=== PATIENT | female | born 1945 | race Caucasian/White ===

== ENCOUNTER 2021-10-23 11:26 | Outpatient (CLI) | payer MEDICARE, SELFPAY ==
--- NOTE | 2021-10-23 11:34 | ECG_ITS ---
Measurements Intervals [place] Rate: 73 P: 46 GA: 157 QRS: 24 QRSD: 94 T: 41 QT: 365 QTc: 405 Interpretive Statements SINUS RHYTHM POSSIBLE LEFT ATRIAL ENLARGEMENT [-0.1mV P WAVE IN V1/V2] POSSIBLE RIGHT VENTRICULAR CONDUCTION DELAY [RSR (QR) IN V1/V2] NO PREVIOUS ECG AVAILABLE FOR COMPARISON Electronically Signed On 10-23-2021 18:37:22 CDT by Luz Cruz M.D.
== END 2021-10-23 11:27 | disposition home or self-care (01) ==
LOC: ANHSURGERY 11:31
PROVIDERS: PCP Internal Medicine; Visit Provider Orthopaedic Surgery
DX: Z01.818 Encounter for other preprocedural examination (principal); I10 Essential (primary) hypertension
CPT/HCPCS: 93005

== ENCOUNTER 2021-10-25 02:41 | Day surgery (SDC) | payer MEDICARE, SELFPAY ==
[2021-10-18 15:02] VITALS: BMI 28.5
--- NOTE | 2021-10-18 15:27 | PC.NURSE ---
Report to the Outpatient Waiting Room, entrance under the green pavilion located off [facility], at time __6:00AM on date __10/25/21 . OR Time: ___7:30AM . - You and your visitor will be asked a series of questions to screen for COVID 19 for your protection. - A mask is required within the hospital. Preoperative COVID Testing Requirements: No COVID Test needed if: (proof is required; if not received patient will have Rapid Test prior to entry) - Patient has received COVID Vaccine at least 14 days prior to procedure date or - Patient has positive COVID test result within last 90 days of surgery date. COVID Test needed if above criteria is not met If not COVID vaccinated a COVID test must be conducted within 72 hours of surgery and patient is asked to isolate self from time of testing until procedure. You will go to the [facility] for your COVID testing. The [facility] site is located at the corner of [address] [facility]. You will only be called if COVID results are positive and your surgeon may reschedule your elective surgery date. Patients may have clear liquids (water, carbonated beverages, clear teas, apple juice) until 3 hours prior to surgery with a maximum of 20 ounces. - No food from midnight until time of surgery - Infants may have breast milk until 4 hours before surgery, formula 6 hours prior to surgery. - Children will be allowed to drink immediately following surgery. If applicable, please bring a bottle or sippy cup to assist with drinking. Juice, water, soda, and popsicles are readily available. For infants on formula, please bring formula the day of surgery. Pacifiers are allowed. Take the following medications with a SIP of water the morning of surgery: ___DILTIAZEM, GABAPENTIN, HYDROCODONE Medications to discontinue per physician ALL VITAMINS/SUPPLEMENTS 3 DAYS PRE-OP Date to take last dose____10/21/21 Please no make-up, nail tunisian, hairspray, perfume, deodorant, or body powder the day of surgery. No jewelry (including any body piercings) or valuables the day of surgery, leave them at home. Please take a shower or bath the night before, or the morning of, surgery with an antibacterial soap. Wear comfortable, loose fitting clothing. Children are encouraged to wear pajamas. - Jewelry must be removed prior to entering the operating room. Rings and piercings that are not removed may be cut off. - The hospital will not accept responsibility for valuables. - Please leave all valuables, including medications, at home the day of surgery. PATIENT CALLING MD OFFICE TO GET OK TO LEAVE FINGERNAIL DIVEHI ON. If you are going home after surgery, a licensed trailer truck driver must drive you home. - NO public transportation without another adult. - We recommend that an adult stay with you for 24 hours following discharge. - We also recommend that you do not drive, make important decision, drink alcoholic beverages, or take any drugs that were not prescribed by your health care provider for at least 24 hours after your discharge time. For Pediatric surgeries, we recommend two adults accompany the child home (only one inside the building at this time). One visitor will be allowed to accompany the patient into the hospital. Patients visitor will be instructed to remain with patient at all times or leave the building. We will allow the visitor to come back to the postoperative area when patient is ready. Follow any additional instructions given to you from your surgeon. Telephone instructions given to ___PATIENT and asked if any additional questions and then verbalized understanding. Patient advised to call surgeon office or pre surgery nurse liaison [phone] if any additional questions.
--- NOTE | 2021-10-24 10:32 | WPDANESEPPF ---
Anes - Initial Pre Proc Eval Procedure: Operation Date: 10/25/21 07:30 Proposed Procedures p Left Shoulder Arthroscopy with Distal Clavicle Excision, Subacromial Decompression, Extensive Joint Debridement with Possible Bicep Tenodesis - Reuben Simmons MD Date/Time: 10/24/21 10:32 Surgeon: Reuben Simmons MD Pre Op Diagnosis: Impinge Syndrome Lt Shoulder , Patient Data Age: 75 Gender: F Height: 1.6 m Weight: 73 kg Allergies Allergy/AdvReac Type Severity Reaction Status Date / Time Penicillins Allergy Severe Rash, SOB, Verified 10/25/21 06:33 SWELLING adhesive tape Allergy Unknown REDNESS, Verified 10/25/21 06:33 IRRITATION, BLISTERS etodolac Allergy RASH, Verified 10/25/21 06:33 SWEELING, SOB ibuprofen Allergy RASH, Verified 10/25/21 06:33 SWELLING, SOB NSAIDS (Non-Steroidal Allergy RASH, Verified 10/25/21 06:33 Anti-Inflamma SWELLING, SOB MUSCLE RELAXANTS Allergy RASH, Uncoded 10/25/21 06:33 SWELLING, SOB Home Medications Medication Instructions Recorded Confirmed Type diltiazem HCl 120 mg 120 mg PO BID 08/22/21 10/25/21 History capsule,extended release 12 hr gabapentin 300 mg capsule 300 mg PO QAM 08/22/21 10/25/21 History pantoprazole 20 mg tablet,delayed 20 mg PO QAM 08/22/21 10/25/21 History release vit C 250 mg-vit E 90 mg-zinc 40 1 tablet PO BID 08/22/21 10/25/21 History mg-copper 1 gr-fazghb-ylobsw capsule b.ylt-zmt-abonx-nrh-qjrs-sijak 1 ea PO BID 10/18/21 10/25/21 History [Black Cohosh Menopause Complex] gabapentin 600 mg PO HS 10/18/21 10/25/21 History hydrocodone-acetaminophen 1 tablet PO QID 10/18/21 10/25/21 History multivitamin [Multiple Vitamin] 1 tablet PO DAILY 10/18/21 10/25/21 History Patient hx anesthesia problems: none Family hx anesthesia problems: none Results Review: All pre-operative results and documents have been reviewed as part of the pre-operative evaluation. REPLACED BY [facility] Past Medical History Medical History (Updated 10/24/21 @ 10:33 by Jesse Harrison DO) Chronic, continuous use of opioids Fibromyalgia History of cervical cancer History of lung cancer History of radiation therapy History of right breast cancer (~2015) History of stress test (~2001) Hypertension Surgical History Surgical History (Updated 10/24/21 @ 10:33 by Jesse Harrison DO) History of discectomy History of hernia surgery (~1999) History of hysterectomy (~1979) History of knee surgery (~1993) Rt History of right knee surgery (~2009) Hx of fusion of cervical spine Family History Family History Other Breast cancer Social History Social History Smoking packs per day: 1 Smoking cigarettes per day: 20.0 Years smoked: 35 Smoking pack-years: 35.00 Smoking status: Former smoker Tobacco type: cigarettes Smoking end date: 02/08/03 Substance use: never Living arrangements: with family [facility] Spiritual care concerns: No Anes - Eval Final PreProcedure Day of Procedure 10/24/21 10:32 Patient weight: overweight Heart: regular rate and rhythm Lungs: clear to auscultation and normal air movement Airway: Mallampati scale class II Neurological: alert and oriented Last oral intake: >/= 8 hours ASA classification: III Emergent: no Anesthetic plan: proceed Anesthesia type and monitoring: general ETT and standard monitoring Results Review: All pre-operative results and documents have been reviewed as part of the pre-operative evaluation. Informed Consent: The patient's anesthetic plan and its attendant risks and benefits were discussed with the patient/family/POA. Questions were solicited and answers provided to the satisfaction of the patient/family/POA.
--- NOTE | 2021-10-24 10:33 | WPDANESPNB ---
Anes - Peripheral Nerve Block Date/Time: 10/24/21 10:33 I have discussed with the patient/family/POA the placement of a peripheral nerve block for post-operative pain management, including associated risks, benefits, complications, and side effects. Alternative methods of post-operative analgesia were detailed. Questions were solicited and answers provided to the satisfaction of the patient/family/POA. Time-Out: A pre-procedural Time-Out was completed immediately before starting the procedure and confirmed: Patient Identification, Site, Procedure, Patient Position and the Availability of Requisite Equipment. Clinical Indications: Acute post-operative pain management requested by the operative surgeon. Nerve Block Insertion Note Anes-nerve block: interscalene left Patient position: supine Skin prep: chlorhexidine Needle: 22 gauge, stimulating, insulated echogenic needle. Needle length: 50 mm Technique: ultrasound Injectate: bupivacaine 0.5% with epi 5 mcg/ml (30cc- no epi) Observations: tolerated well Complications: none Procedure start time:: 721 Procedure end time:: 724
[2021-10-25] VITALS (10 sets, daily range): BP systolic 127–161; BP diastolic 62–85; PULSE 68–91; RESP 14–18; TEMP 36.1; O2SAT 93–100
[2021-10-25] MEDS: LACTATED RINGERS 1,000 ML 30 ML IV CONT (06:47)
--- NOTE | 2021-10-25 07:26 | WPDHPUPDATE1 ---
History and Physical Update Update Date/Time: 10/25/21 07:26 History and Physical has been reviewed, including an updated exam of the patient. There are NO changes in the patient's condition. Risks, benefits, and alternatives have been discussed and questions answered. Patient agrees to proceed with procedure.
[2021-10-25] MEDS: ceFAZolin 2 GM/D5W 50 ML 2 GM/50 ML BAG IVPB (07:29)
[2021-10-25] MEDS: fentaNYL CITRATE INJ (*CRX) 100 MCG/2 ML VIAL 25 MCG IV PUSH ×2 (09:51→09:57)
--- NOTE | 2021-10-25 10:09 | W.PM.PROC2 ---
Procedure Note - Detailed Date of Procedure 10/25/21 Pre-op Diagnosis 1. Arthritis left shoulder 2. Impingement syndrome left shoulder with rotator cuff tendinopathy Post-op Diagnosis Other (1. Arthritis left shoulder 2. Impingement syndrome left shoulder with rotator cuff tendinopathy 3. Biceps tendinosis) Procedure Performed Arthroscopic surgery left shoulder: 1. Distal clavicle excision 2. Extensive debridement including biceps tenotomy, labral debridement, and humeral chondroplasty. 3. Subacromial decompression with acromioplasty. Surgeon Reuben Simmons MD Software Quality Automation Engineer Freda Oliver PA-C Anesthesia General and Regional Findings Yiag-tw-vjiqevwa degenerative changes of the humerus noted. Gentle chondroplasty performed. Early erosion at the central portion of the glenoid to bone. Much of the remaining cartilage was intact. Fairly extensive labral degeneration inferior and posterior. Gentle debridement with the shaver and radiofrequency probe performed. Significant biceps tendinosis treated with tenotomy. Subscapularis intact. Low-grade articular tear less than 15% the anterior supraspinatus. Low-grade bursal sided fraying. Mild evidence of subacromial impingement. Acromioplasty and distal clavicle excision performed. The cuff tendon otherwise was fairly healthy with reasonably good quality tissue. Description of Procedure The patient was given an interscalene block in the holding area. Preoperative antibiotics were given. The patient was brought to the operating room. Careful positioning in the beach chair was accomplished. The head neck were carefully positioned. A small bump was placed under the left shoulder. The shoulder was examined. The shoulder was prepped and draped in the usual sterile fashion. Standard posterior and anterior arthroscopic portals were established. The shoulder was inspected. Articular findings were described above. Gentle debridement of the articular rotator cuff tear and biceps tenotomy performed. Humeral chondroplasty and labral debridement were performed. The radiofrequency probe and arthroscopic shaver were used. There was a mild capsulitis but no contracture. Attention was turned to the subacromial space. A complete bursectomy was performed. The rotator cuff had very mild superficial fraying. Palpation revealed mild softness at the superior rotator cuff attachment which was marked previously with a PDS suture. The tissue appeared fairly robust and was left in situ. The acromion was clearly visualized. The coracoacromial ligament was released. Careful acromioplasty was performed, followed by excision of 1 cm distal clavicle. Care was taken to remove all superior bone while leaving the superior ligaments intact. Loose bone fragments were carefully irrigated from the joint. The arthroscopic instruments were removed. The wounds were closed with interrupted 3-0 Monocryl suture followed by Steri-Strips. A sterile dressing was applied with a sling. The patient was extubated and brought to the recovery room in stable condition. There were no complications. Physician certified physician assistant, Freda Oliver PA-C, required for surgery; including patient positioning, draping, arthroscopic camera operation, maintaining instrument position, wound closure, and dressing and sling placement. Estimated Blood Loss 10 Pathology None sent Complications No immediate complications Condition Stable Disposition PACU
[2021-10-25] MEDS: oxyCODONE HCL (*CRX) 5 MG TAB IR PO (11:08)
== END 2021-10-25 11:17 | disposition home or self-care (01) ==
PROVIDERS: PCP Internal Medicine; Visit Provider Orthopaedic Surgery
PROC: (CPT 29805; principal; 2021-10-25 07:30)
DX: M19.012 Primary osteoarthritis, left shoulder (principal); M75.42 Impingement syndrome of left shoulder; M75.22 Bicipital tendinitis, left shoulder; G89.18 Other acute postprocedural pain; I10 Essential (primary) hypertension; M79.7 Fibromyalgia; Z85.3 Personal history of malignant neoplasm of breast; Z85.118 Personal history of other malignant neoplasm of bronchus and lung; Z92.3 Personal history of irradiation; Z85.41 Personal history of malignant neoplasm of cervix uteri; Z79.891 Long term (current) use of opiate analgesic; Z98.1 Arthrodesis status; Z87.891 Personal history of nicotine dependence
CPT/HCPCS: 29823; 29826; 29824; 64415; 93005; A9270; J0690; J1170; J2250; J2405; J2704; J2710; J3010; J7120